=== PATIENT | female | born 1980 | race Caucasian/White ===

== ENCOUNTER 2018-01-24 18:16 | Emergency (ER) | END 2018-01-24 20:40 | disposition home or self-care (01) ==

== ENCOUNTER 2018-02-04 11:47 | Emergency (ER) | payer OTHER ==
[~2018-02-04] VITALS: Ht 170.2 cm; Wt 81.7 kg
[~2018-02-04 11:47] MED LIST: AMOX875 PO; BUTASPCAF PO; CEPH500 PO; CODBUTACEC PO; CYCL10 PO; ERYT.5TO OD; FLUT.05NI; HYDACE5 PO; HYDACE7.5 PO; LEVSOD50 PO; Norco 5-325 Ta1 EACH PO; ORTHOTRYCYCLINE; OXYACE5T PO; PROC10 PO; PROM25 PO; Prednisone20 MG PO; QVAR7.3 G1; Robaxin-750750 MG PO; SULTRIDS PO; TOPI25 PO; TRAM50 PO; Ventolin Soln3 ML INH
== END 2018-02-04 13:11 | disposition home or self-care (01) ==
LOC: ER 11:47
DX: S50.02XA Contusion of left elbow, initial encounter (principal); G43.909 Migraine, unspecified, not intractable, without status migrainosus; F17.210 Nicotine dependence, cigarettes, uncomplicated; W18.30XA Fall on same level, unspecified, initial encounter
CPT/HCPCS: 73070; 99283